=== PATIENT | male | born 1975 | race Caucasian/White ===

== ENCOUNTER 2020-10-16 05:53 | Emergency (ER) | payer OTHER ==
[2020-10-16] MEDS ORDERED: HYDROmorphone 1 MG/ML 1 ML SYRINGE IM STA (05:58)
[2020-10-16] MEDS ORDERED: IBUPROFEN 800 MG TAB PO STA (05:58)
[2020-10-16] MEDS ORDERED: ACET/COD 300 MG/30 MG STARTER PACK 6 TAB BTL PO STA (05:58)
--- NOTE | 2020-10-16 06:01 | ED ---
Lower Extremity Injury HPI - General Chief Complaint: Extremity Injury, Lower Stated Complaint: Fall,ankle injury Time Seen by Provider: 10/16/20 06:01 Source: patient, RN notes reviewed, old records reviewed Mode of arrival: ambulatory Limitations: no limitations - History of Present Illness Initial Comments: This is a 45-year-old male DF for evaluation status post trip and fall, patient found ice this morning complaining of severe left ankle pain unable to bear weight. No other treatment injury is noted. No modifying factors for symptoms. A she has no significant medical history takes no other medications MD Complaint: ankle injury (left) -: minutes(s) Injury: Ankle: Left Type of Injury: inversion Place: work Severity: severe Severity scale (1-10): 10 Improves With: nothing Worsens With: weight bearing, movement, palpation Context: fall, direct blow Associated Symptoms: snap/pop sensation, swelling, unable to bear weight - Related Data Allergies Allergy/AdvReac Type Severity Reaction Status Date / Time No Known Allergies Allergy Verified 10/16/20 05:56 Review of Systems ROS Statement: Those systems with pertinent positive or pertinent negative responses have been documented in the HPI. ROS Other: All systems not noted in ROS Statement are negative. Past Medical History Past Medical History: No Reported History History of Any Multi-Drug Resistant Organisms: None Reported Past Surgical History: No Surgical Hx Reported Past Psychological History: No Psychological Hx Reported Smoking Status: Never smoker Past Alcohol Use History: None Reported Past Drug Use History: None Reported General Exam Limitations: no limitations General appearance: alert, in no apparent distress, anxious Head exam: Present: atraumatic, normocephalic, normal inspection Eye exam: Present: normal appearance, PERRL, EOMI. Absent: scleral icterus, conjunctival injection, periorbital swelling ENT exam: Present: normal exam, mucous membranes moist Neck exam: Present: normal inspection. Absent: tenderness, meningismus, lymphadenopathy Respiratory exam: Present: normal lung sounds bilaterally. Absent: respiratory distress, wheezes, rales, rhonchi, stridor Cardiovascular Exam: Present: regular rate, normal rhythm, normal heart sounds. Absent: systolic murmur, diastolic murmur, rubs, gallop, clicks GI/Abdominal exam: Present: soft, normal bowel sounds. Absent: distended, tenderness, guarding, rebound, rigid Extremities exam: Present: normal inspection, full ROM, normal capillary refill. Absent: tenderness, pedal edema, joint swelling, calf tenderness Back exam: Present: normal inspection Neurological exam: Present: alert, oriented X3, CN II-XII intact Psychiatric exam: Present: normal affect, normal mood Skin exam: Present: warm, dry, intact, normal color. Absent: rash Course Vital Signs 10/16/20 05:54 Temperature 98.7 F Pulse Rate 83 Respiratory 22 Rate Blood Pressure 151/69 O2 Sat by Pulse 100 Oximetry - Reevaluation(s) Reevaluation #1: Medical record is reviewed Patient has adequate symptom control currently, symptoms improved Patient is feeling better Spoke patient regarding findings, questions answered Procedures - Orthopedic Splinting/Casting Injury #1 Side: left Upper Extremity Immobilizer: posterior splint, sugar tong splint Lower Extremity Injury Location: short leg Medical Decision Making - Medical Decision Making 45 male to the ER who presents for evaluation patient history of a fall with left fibular fracture. Splint is placed, patient's pain is controlled can be discharged home - Radiology Data Radiology results: report reviewed (X-ray left ankle spiral tibial fracture), image reviewed Disposition Clinical Impression: Closed left ankle fracture, Fall Disposition: HOME SELF-CARE Condition: Good Instructions (If sedation given, give patient instructions): Ankle Fracture (ED) Is patient prescribed a controlled substance at d/c from ED?: No Referrals: Ervin Dior DO [Doctor of Osteopathic Medicine] - 1-2 days
[2020-10-16 06:10] VITALS: BP 151/69; PULSE 83; RESP 22; TEMP 98.7
--- NOTE | 2020-10-16 06:57 | XR ---
EXAM: XR Left Ankle Complete, 3 or More Views CLINICAL HISTORY: Injury in fall. TECHNIQUE: Frontal, lateral and oblique views of the left ankle. COMPARISON: No relevant prior studies available. FINDINGS: Bones/joints: Distal fibular shaft fracture with mild displacement. Abnormal widening of the medial space of the ankle mortise consistent with ligamentous injury. No dislocation. Soft tissues: Unremarkable. IMPRESSION: Distal fibular shaft fracture with mild displacement. Abnormal widening of the medial space of the ankle mortise consistent with ligamentous injury.
== END 2020-10-16 06:43 | disposition home or self-care (01) ==
LOC: EC 05:53
DX: S82.832A Other fracture of upper and lower end of left fibula, initial encounter for closed fracture (principal); W00.0XXA Fall on same level due to ice and snow, initial encounter
CPT/HCPCS: 73610; 99284; 29515; 96372; J1170